=== PATIENT | male | born 1995 | race Caucasian/White ===

== ENCOUNTER 2024-08-03 06:02 | Emergency (ER) | payer OTHER ==
[2024-08-03 06:16] VITALS: BP 149/76; PULSE 98; RESP 18; TEMP 98.6; BMI 26.3
[2024-08-03] MEDS ORDERED: LIDOCAINE 1%/EPI 1:100000 (20 ML MULTI DOSE VIAL) ONE (08:08)
[2024-08-03] MEDS ORDERED: KETOROLAC TROMETHAMINE 30 MG/1 ML VIAL ONE (08:08)
[2024-08-03] MEDS: KETOROLAC TROMETHAMINE 30 MG/1 ML VIAL IM ONE (08:09)
[2024-08-03] MEDS: LIDOCAINE HCL 2% (50ML VIAL) SQ STA (08:14)
[2024-08-03 13:18] LABS: HIV INTERPRETATION NEGATIVE (NEGATIVE)
== END 2024-08-03 09:11 | disposition home or self-care (01) ==
LOC: JER 06:02 → JERFT 06:02
PROC: 0H96XZZ Drainage of Back Skin, External Approach (ICD-10-PCS; principal; 2024-08-03)
PROC: 3E0133Z Introduction of Anti-inflammatory into Subcutaneous Tissue, Percutaneous Approach (ICD-10-PCS; 2024-08-03)
DX: L02.213 Cutaneous abscess of chest wall (principal)
CPT/HCPCS: 36415; 86803; 87389; 99284-25